=== PATIENT | male | born 2000 | race Caucasian/White ===

== ENCOUNTER 2025-07-28 20:32 | Emergency (ER) | payer OTHER ==
[~2025-07-28] VITALS: Ht 175.3 cm; Wt 70.5 kg
[2025-07-28 21:40] LABS: BASO # 0.1 10^3/uL (0.0-0.2); BASO % 0.3 % (0.0-1.0); EOS # 0.0 10^3/uL (0.0-0.5); EOS % 0.1 % (0.0-3.0); LYMPH # 1.6 10^3/uL (1.5-5.0); LYMPH % 10.1 % (24.0-44.0); MONO # 0.7 10^3/uL (0.0-0.8); MONO % 4.5 % (2.0-8.0); NEUTROPHILS # 13.5 10^3/uL (1.5-8.5); NEUTROPHILS % 84.6 % (36.0-66.0); PLATELET COUNT, AUTOMATED 239 10^3/uL (150-450)
[2025-07-28] MEDS: NS (Normal Saline) 0.9% 1,000 ML IV ONE (22:09)
[2025-07-28 22:43] LABS: ETHYL ALCOHOL (ETHANOL) 0.224 % (0.000-0.010)
[2025-07-28 22:44] LABS: SALICYLATE LEVEL < 3.0 MG/DL (<30)
[2025-07-28 22:45] LABS: ALT/SGPT 34 U/L (7.0-40); AST/SGOT 32 U/L (<34); CALCIUM LEVEL 9.2 MG/DL (8.5-10.1); CARBON DIOXIDE LEVEL 24 MMOL/L (20-31); CHLORIDE LEVEL 103 MMOL/L (98-107); CREATININE FOR GFR 0.88 MG/DL (0.70-1.30); GLOMERULAR FILTRATION RATE > 90.0 (>60); POTASSIUM SERUM 4.0 MMOL/L (3.5-5.1); SODIUM LEVEL 140 MMOL/L (136-145)
[2025-07-29 00:19] LABS: AMPHETAMINES LEVEL URINE NEGATIVE (NEGATIVE); BARBITURATES URINE NEGATIVE (NEGATIVE); BENZODIAZEPINES URINE NEGATIVE (NEGATIVE); CANNABINOIDS URINE NEGATIVE (NEGATIVE); COCAINE METABOLITE URINE NEGATIVE (NEGATIVE); METHADONE URINE NEGATIVE (NEGATIVE); OPIATES URINE NEGATIVE (NEGATIVE); PHENCYCLIDINE URINE NEGATIVE (NEGATIVE)
[2025-07-29 00:21] LABS: MAGNESIUM LEVEL 2.1 MG/DL (1.8-2.4)
[2025-07-29 00:25] LABS: FREE T4 1.22 NG/DL (0.89-1.76)
[2025-07-29] MEDS: dilTIAZem 25 MG/5 ML VIAL IV STA ×2 (00:42→01:27)
[2025-07-29 01:27] VITALS: BP 113/53
[2025-07-29] MEDS: DIGOXIN INJ 0.5 MG/2 ML AMP IV ONE (02:55)
[2025-07-29] MEDS: NS (Normal Saline) 0.9% 1,000 ML IV ONE (03:16)
[2025-07-29] MEDS: MULTIVITAMINS/MINERALS THERAP 1 TAB PO SCH (08:37)
[2025-07-29] MEDS: FOLIC ACID 1 MG TAB PO SCH (08:38)
[2025-07-29] MEDS: THIAMINE 100 MG TAB PO SCH (08:38)
[2025-07-29] MEDS ORDERED: PROHANCE 279.3MG/ML 15ML VIAL As Ordered ONE (09:14)
[2025-07-29] MEDS ORDERED: HOME MED LIST COMPLETE! XX SCH (11:35)
[2025-07-29] MEDS ORDERED: ISOVUE-370 76% 100 ML VIAL As Ordered ONE (14:04)
[2025-07-29 15:31] VITALS: BP 147/85
[2025-07-29 15:33] VITALS: TEMP 98.9; O2SAT 90
== END 2025-07-29 15:40 | disposition home or self-care (01) ==
LOC: M ED 20:32
DX: F10.129 Alcohol abuse with intoxication, unspecified (principal); T68.XXXA Hypothermia, initial encounter; D18.02 Hemangioma of intracranial structures; I45.81 Long QT syndrome; I48.91 Unspecified atrial fibrillation; F17.200 Nicotine dependence, unspecified, uncomplicated; Y92.84 Military training ground as the place of occurrence of the external cause; Y93.89 Activity, other specified; Y99.9 Unspecified external cause status; X31.XXXA Exposure to excessive natural cold, initial encounter
CPT/HCPCS: 51702; 70450; 70496; 70553; 80048; 80076; 80143; 80307; 82077; 83735; 84439; 84443; 85025; 93005; 93041; 94760; 96361; 96374; 96375; 96376; 99285; A9576; J1160; J1163; Q9967